=== PATIENT | male | born 1970 | race Caucasian/White ===

== ENCOUNTER 2017-11-26 06:28 | Day surgery (SDC) | payer BC ==
[~2017-11-26 06:28] MED LIST: Lactated Ringers 1,000 ML IV SCH; Sodium Chloride 0.9% 10 ML Syringe FLUSH PRN
[2017-11-26] MEDS ORDERED: Propofol 200 MG/20 ML SDV IV ONE (06:29)
[2017-11-26] MEDS ORDERED: Lidocaine 1% 30 ML SDV ONE ×2 (06:29→07:02)
[2017-11-26] MEDS ORDERED: Bupivacaine 0.5% 30 ML SDV ONE ×2 (06:29→07:01)
[2017-11-26] MEDS ORDERED: Ketorolac 30 MG/ML SDV IVPUSH ONE (06:29)
[2017-11-26] MEDS ORDERED: fentaNYL 100 MCG/2 ML SDV IV ONE (06:29)
[2017-11-26] MEDS ORDERED: Midazolam 1 MG/ML 2 ML SDV IV ONE (06:29)
[2017-11-26] MEDS ORDERED: Ondansetron 4 MG/2 ML SDV IV ONE (06:29)
[2017-11-26] MEDS ORDERED: ceFAZolin 1 GM in Premix Bag 1 BAG IV ONE ×2 (07:00→07:49)
[2017-11-26] MEDS ORDERED: Bupivacaine 0.5% 30 ML SDV INJECT ONE ×5 (08:00→09:29)
[2017-11-26] MEDS ORDERED: Lidocaine 1% 30 ML SDV INJECT ONE ×5 (08:00→09:29)
[2017-11-26] MEDS ORDERED: Acetaminophen/oxyCODONE 325-5 MG Tab PO PRN (09:35)
--- NOTE | 2017-11-26 09:39 | PCM.OPNOTE ---
- General Post-Op/Procedure Note Date of Surgery/Procedure: 11/26/17 Operative Procedure(s): right foot 1st MTPJ cheilectomy with subchondral drilling Pre Op Diagnosis: right foot hallux limitus Post-Op Diagnosis: yu Anesthesia Technique: General LMA Primary Surgeon: Soraya Giles Anesthesia Provider: Moises Nichols EBL in mLs: 5 Complications: none Condition: Good Free Text/Narrative:: Pt tolerated procedure well and was transported to recovery with vascular status intact to right foot. Well padded compression dressing applied.
--- NOTE | 2017-11-26 16:24 | OR ---
DATE: 11/26/2017 PREOPERATIVE DIAGNOSIS: Right foot first metatarsophalangeal joint arthritis/hallux limitus. POSTOPERATIVE DIAGNOSIS: Right foot first metatarsophalangeal joint arthritis/hallux limitus. PROCEDURE PERFORMED: Right foot first metatarsophalangeal joint cheilectomy with subchondral drilling. ANESTHESIA: LMA with preoperative local block of 10 mL 1:1 mixture of 1% lidocaine plain and 0.5% Marcaine plain. TOURNIQUET TIME: 77 minutes, pneumatic ankle tourniquet. ESTIMATED BLOOD LOSS: Minimal. SPECIMEN: None. COMPLICATIONS: None. INDICATIONS: Ar is a 47-year-old male who presents with right great toe pain. He states that a few years ago, he had a bunionectomy procedure done in a different town. His foot was doing okay after surgery, but then his great toe joint started to hurt. He states that he has noticed limited motion in the great toe joint, and he has pain whenever he is standing or walking. There seems to be a palpable bump on the top of that joint that is painful with palpation. This is kind of the worst area of pain. 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 He has tried good hard-soled shoes and activity modifications with no relief. X-rays of the right foot reveal joint space narrowing with periarticular spurring present. There is a large dorsal spur at the first MTPJ, also appears to be a loose body at the dorsal first MTPJ with some subchondral cystic changes at the very dorsal aspect of the joint. His first metatarsal is shorter than the second, no fractures. The patient voiced good understanding of the proposed procedure and possible complications and elects to have surgery at this time. DESCRIPTION OF PROCEDURE: The patient was taken to the operating room lying in the supine position. After adequate anesthesia induction as described above, the right foot was prepped and draped in the usual sterile fashion. A pneumatic ankle tourniquet was inflated to the right ankle at 225 mmHg. Attention was directed to the first metatarsophalangeal joint where an approximately 5 cm linear incision was made, centered dorsally over the first metatarsophalangeal joint. Sharp and blunt dissection was performed down to the level of the joint capsule with care to gently retract all neurovascular structures. A T- capsulotomy was made, and the extensor hallucis longus tendon was retracted laterally. The capsule was sharply dissected free from the attachments of the distal first metatarsal and base of the proximal phalanx. A significant amount of osteophytosis was noted at this time at the dorsal first metatarsal head as well as the base of the proximal phalanx. There was also erosion of the articular cartilage at the dorsal aspect of the joint both at the metatarsal head and also the proximal phalanx base. A sagittal saw was used to resect the bone from the dorsal aspect of the first metatarsal head and the dorsal base of the proximal phalanx. There was also a loose body/joint mouse at this area and that was completely excised. A rongeur was then used to resect the bone from the medial, dorsal, and lateral aspects of the first metatarsal head and the base of the proximal phalanx to ensure all spurring was removed. The area was then again examined, and there is still a small area of subchondral defect still present at the dorsal aspect of the first metatarsal head and base of the proximal phalanx, which were drilled with a 0.062 inch K-wire to stimulate fibrocartilage growth. All rough edges were smoothed with a rongeur and a bone rasp. The remainder of the articular surface appeared healthy in appearance without any other defects present. The intraoperative dorsiflexion of the hallux was noted to be increased to approximately 65 degrees from the 20 that was preop. There was no crepitus with range of motion. The area was then irrigated with copious amounts of sterile saline. Deep closure was completed with 2-0 Vicryl, and skin closure was completed with 4-0 nylon. The area was then dressed with Xeroform to the surgical site, fluffs, Webril, and then Kerlix. He was placed in a postoperative shoe. The patient tolerated the procedure and anesthesia well and left the operating room for recovery with vital signs stable in good condition with vascular status intact to the right foot as noted by immediate hyperemia upon deflation of the ankle tourniquet. Total tourniquet time was 77 minutes. The patient was then discharged home when he met hospital discharge requirements. [facility] /[id number]
== END 2017-11-26 11:29 | disposition home or self-care (01) ==
LOC: DL.SDS 06:28
PROVIDERS: ATTEND Podiatrist
DX: M20.5X1 Other deformities of toe(s) (acquired), right foot (principal); M13.871 Other specified arthritis, right ankle and foot; G47.33 Obstructive sleep apnea (adult) (pediatric); Z99.89 Dependence on other enabling machines and devices; Z88.1 Allergy status to other antibiotic agents; J30.1 Allergic rhinitis due to pollen
CPT/HCPCS: 28289; J0690; J1885; J2250; J2405; J2704; J3010; J7120